=== PATIENT | male | born 1955 | race Caucasian/White ===

== ENCOUNTER → 2021-07-14 | Outpatient (CLI) | payer MEDICARE ==
[~2021-07-14] MED LIST: ASPI-886 PO; ATOR20TA58 PO; DOCU-109 PO; GABA600T7 PO; HYDR-2761 PO; INDO75CA3 PO; METF500T16 PO; TIZA4TAB2 PO
[2021-07-14 13:32] LABS: BASO # 0.1 x10^3/uL (0.0-0.2); BASO % 0 % (0-3); EOS # 0.1 x10^3/uL (0.0-0.7); EOS % 1 % (0-3); HEMATOCRIT 43.7 % (39.0-53.0); LYMPH # 1.5 x10^3/uL (1.0-4.8); LYMPH % 13 % (24-48); MEAN CORPUSCULAR HEMOGLOBIN 31 pg (25-35); MEAN CORPUSCULAR HGB CONC 34 g/dL (31-37); MEAN CORPUSCULAR VOLUME 90 fL (79-100); MONO # 0.7 x10^3/uL (0.0-1.1); MONO % 6 % (0-9); NEUT # 9.7 x10^3/uL (1.8-7.7); NEUT % 81 % (31-73); PLATELET COUNT 337 x10^3/uL (140-400); RED BLOOD COUNT 4.84 x10^6/uL (4.30-5.70); RED CELL DISTRIBUTION WIDTH 14.5 % (11.5-14.5)
[2021-07-14 13:46] LABS: ALBUMIN 3.6 g/dL (3.4-5.0); ALBUMIN/GLOBULIN RATIO 1.1 (1.0-1.7); CALCIUM 9.2 mg/dL (8.5-10.1); POTASSIUM 4.4 mmol/L (3.5-5.1); TOTAL BILIRUBIN 0.3 mg/dL (0.2-1.0); TOTAL PROTEIN 6.9 g/dL (6.4-8.2)
[2021-07-15 02:10] LABS: HEMOGLOBIN A1C 6.3 % (4.8-5.6)
== END ==
LOC: SURGPAT 12:49
PROVIDERS: ATTEND Neurological Surgery
DX: Z01.818 Encounter for other preprocedural examination (principal); M51.17 Intervertebral disc disorders with radiculopathy, lumbosacral region; Z79.899 Other long term (current) drug therapy
CPT/HCPCS: 36415; 80053; 83036; 85025; 87641

== ENCOUNTER 2021-07-18 10:48 | Day surgery (SDC) | payer MEDICARE ==
[2021-07-14 13:30] VITALS: BP 125/62
--- NOTE | 2021-07-17 16:56 | HP ---
ADMIT DATE: 07/18/2021 PREOPERATIVE HISTORY AND PHYSICAL HISTORY OF PRESENT ILLNESS: The patient is a pleasant 65-year-old man who is having difficulty with low back pain, left buttock pain and left posterior thigh pain. The pain radiates to his left leg to the bottom of his left foot and to the lateral side of his left foot. He said he has had similar problems in late 2019, but this April the problem became worse again. He says when it is severe the pain is 10/10. It is relatively constant. The pain is worse with activities. Sitting, standing and walking increases pain. Lying down helps. He is taking gabapentin and tizanidine without much benefit. Oral steroids have helped him. He has had 6 weeks of physical therapy with no benefit. He had an injection in his posterior thigh without benefit. He had an epidural steroid injection on June 23, which helped him for few days. He has been extensively evaluated with regard to his left hip. CURRENT MEDICATIONS: Indomethacin, aspirin, metformin, atorvastatin, tizanidine, gabapentin. PAST MEDICAL HISTORY: Denies any previous medical history. SURGICAL HISTORY: Cataract removal, left knee meniscus repair. FAMILY HISTORY: Cancer, diabetes, heart disease. SOCIAL HISTORY: Retired. . Quit smoking more than 10 years ago. Drinks alcohol 1-2 times per month. ALLERGIES: No known drug allergies. REVIEW OF SYSTEMS: A 12-point review of systems was performed and is noncontributory except that mentioned above. PHYSICAL EXAMINATION: GENERAL: Alert, pleasant, in no acute distress. HEENT: Head is normocephalic, atraumatic. SKIN: Warm and dry. BACK: Moderate tenderness of the lower lumbar spine with palpation. MUSCULOSKELETAL: Lumbar paraspinal muscle bulk is normal, the range of motion is normal, normal range of motion of the lower extremities. EXTREMITIES: No clubbing, cyanosis or edema. NEUROLOGIC: Alert and oriented x 3. Speech is clear. Strength is 5/5 in the lower extremities bilaterally. Sensory was intact to light touch in the lower extremities except for decrease in sensation on the plantar and lateral side of the left foot, reflexes were trace in the lower extremities except an absent ankle jerks on the left. Straight leg raising was positive for back and left leg pain relieved by Lasegue's maneuver. Straight leg raising was negative on the right. Antalgic gait. IMAGING: I reviewed the lumbar MRI scan. On that study, there is a focal disk herniation on the left at L5-S1, which is filling the lateral recess and compressing the left S1 nerve root. ASSESSMENT AND PLAN: The patient has a focal disk herniation at L5-S1 on the left with significant left lumbar radiculopathy. He has failed to improve with conservative measures and time. I recommended lumbar microsurgery at L5-S1 on the left. I spoke with him in detail about the surgery including the risks involved, including nerve root injury. I spoke with his about the possibility of infection and risk of anesthesia as well. I discussed the expected postoperative course. He understands. He would like to proceed. LINDSEY DR: Amanda TID: [id number]
[~2021-07-18] VITALS: Ht 165.1 cm; Wt 65.0 kg
[~2021-07-18 10:48] MED LIST changes: +BUPIVACAINE-EPI 0.5%-1:200000 MPF 30 ML VIAL. ONE; -DOCU-109 PO; +GELATIN SPONGE SIZE 100. ONE; -HYDR-2761 PO; +HYDROmorphone 2 MG/ML VIAL IVP PRN; +IV RINGERS,LACTATED 1000ML 1,000 ML IV SCH; +KETOROLAC 60 MG/2 ML VIAL. ONE; +MORPHINE SULFATE 2 MG/ML INJ. IVP PRN; +PROCHLORPERAZINE 10 MG/2 ML VIAL. IVP PRN; +THROMBIN TOPICAL 20,000 UNIT SPRAY.SYRN KIT TP ONE; +ceFAZolin SODIUM 1 GM in IV NORMAL SALINE 1000ML BAG 1,000 ML IRR ONE; +fentaNYL PF VIAL 100 MCG/2 ML VIAL IVP PRN
[2021-07-18 11:23] VITALS: BP 152/76
[2021-07-18] MEDS ORDERED: PROPOFOL 50 ML IV ONE ×2 (12:07→12:13)
[2021-07-18] MEDS ORDERED: LIDOCAINE 2% PF 5 ML VIAL. ONE (12:07)
[2021-07-18] MEDS ORDERED: ONDANSETRON PF 4 MG/2 ML VIAL. ONE ×3 (12:07→14:53)
[2021-07-18] MEDS ORDERED: DEXAMETHASONE SOD PHOS 4 MG/ML VIAL ONE (12:07)
[2021-07-18] MEDS ORDERED: PROPOFOL 10 MG/ML (20ML) VIAL. IV ONE (12:07)
[2021-07-18] MEDS ORDERED: ROCURONIUM 50 MG/5 ML VIAL. ONE (12:08)
[2021-07-18] MEDS ORDERED: MIDAZOLAM HCL/PF 2 MG/2 ML VIAL. ONE (12:08)
[2021-07-18] MEDS ORDERED: REMIFENTANIL 2 MG VIAL. IV ONE (12:08)
[2021-07-18] MEDS ORDERED: fentaNYL PF VIAL 100 MCG/2 ML VIAL ONE (12:08)
[2021-07-18] MEDS ORDERED: KETAMINE HCL IN NACL, ISO-OSM 50 MG/5 ML SYRINGE ONE (12:17)
[2021-07-18] MEDS ORDERED: PHENYLEPHRINE 10 MG/ML VIAL. ONE (12:18)
[2021-07-18] MEDS ORDERED: NEOSTIGMINE METHYLSULFATE 5 MG/5 ML SYRINGE. ONE (13:42)
[2021-07-18] MEDS ORDERED: DESFLURANE > 120 MINUTES IH ONE (14:50)
[2021-07-18] MEDS ORDERED: DOCU-109 PO (15:13)
[2021-07-18] MEDS ORDERED: HYDR-2761 PO (15:13)
--- NOTE | 2021-07-18 15:17 | DISCH ---
DISCHARGE INSTRUCTIONS Condition on Discharge Condition on Discharge: Stable Activity After Discharge Activity Instructions for Disc: Activity as tolerated, Avoid exertion Other activity instructions: mo driving for a week Bathing Instructions: Shower-keep dressing dry, No Tub Bath until see Lifting Instructions after Dis: No heavy lifting, No pulling or pushing, Do not lift >10 pounds Diet after Discharge Additional Diet Restrictions: resume home diet Wound Incision Care Wound/Incision Care: Ice to area for comfort Other wound/incision instructi: may remove dressing in 48 hours if dry, no soaking Contacting the after DC Call your doctor for: Concerns you may have Follow-Up Follow up with: Dr. Grimm's nurse in 2 weeks [phone] MARIA DEL CARMEN GRIMM MD Jul 18, 2021 15:17
[2021-07-18] MEDS ORDERED: HYDROcodone/APAP 5/325MG 1 TAB TABLET PO ONE (15:30)
[2021-07-18 16:30] VITALS: BP 146/76
--- NOTE | 2021-07-18 18:37 | OP ---
DATE OF SURGERY: 07/18/2021 PREOPERATIVE DIAGNOSIS: Herniated lumbar disc, L5-S1, left with left lumbar radiculopathy. POSTOPERATIVE DIAGNOSIS: Herniated lumbar c L5-S1, left with left lumbar radiculopathy. OPERATION PERFORMED: Hemilaminotomy and microdiscectomy at L5-S1. The operation was done with EMG monitoring, SSEP monitoring, fluoroscopy and microscopic dissection. SPECIMEN: disc and decompression. SURGEON: Lalito Sanchez M.D. HARDENING MACHINE OPERATOR HELPER: HEBERT De La Rosa, assisted with the surgery. She assisted with the exposure, the microdiscectomy as well as the closure. OPERATIVE INDICATIONS: The patient is a very pleasant 65-year-old man who developed intractable back and left leg pain. He had 6 weeks of physical therapy, which did not help him significantly. He had an epidural steroid injection recently, which helped for a few days because of pain recurred and has persisted and moderately severe. I recommended lumbar microsurgery. I spoke with him about the surgery, the risks, the technique and expected postoperative course, and he wished to go ahead. DESCRIPTION OF PROCEDURE: Following general endotracheal anesthesia, the patient was positioned prone on the Diaz table. Lumbar region prepped and draped in the standard fashion. CHIDI hose and AV impulse boots were applied for DVT prophylaxis. A microscope was draped, fluoroscopy was draped and brought into the field. Monitoring was established. Ancef 2 grams was given less than one hour prior to initiation of surgery. Using fluoroscopic guidance, incision was made directly over the L5-S1 interspace and dissected down through skin and subcutaneous tissue, reflected the paraspinal muscles, brought in the [place] Microdisk retractor, brought in the microscope and using high speed air drill, I burred down a generous hemilaminotomy. I trimmed the ligamentum flavum and followed the S1 nerve root out laterally. The root was lifted and draped over structures beneath. Then, I gently retracted the root and dura medially with a micro nerve root retractor. There were multiple disc fragments in the epidural space, which I teased back and removed. I then freed the nerve significantly. I was able to retract the nerve slightly further. Then, I grasped and pulled back a very large herniated disc fragment, followed by 2 moderately sized disc fragments. I explored carefully. There was a fragment of disc that had gone out into the foramen and I teased this back and removed it. The disc space was largely collapsed. I irrigated copiously with antibiotic solution. I had excellent hemostasis. Monitoring was outstanding throughout the operation. There was a single small discharge on the monitor when essentially nothing was being done, but otherwise was quiet. I did use small amounts of bone wax as well as bipolar cautery and removed the retractor, obtained hemostasis in the muscle, irrigated again and then closed the wound in layers with absorbable sutures. The skin was closed with 4-0 subcuticular stitch. The surgery went very well. RAFI/LEONARDO DR: Argelia TID: [id number] ANGELA
== END 2021-07-18 16:51 | disposition home or self-care (01) ==
LOC: SURG 10:48 → EDUNIT# 12:30 → SURG 16:51
PROVIDERS: ATTEND Neurological Surgery
DX: M51.17 Intervertebral disc disorders with radiculopathy, lumbosacral region (principal); E78.00 Pure hypercholesterolemia, unspecified; E11.9 Type 2 diabetes mellitus without complications; M19.90 Unspecified osteoarthritis, unspecified site; Z79.82 Long term (current) use of aspirin; Z79.84 Long term (current) use of oral hypoglycemic drugs; Z79.899 Other long term (current) drug therapy; Z98.890 Other specified postprocedural states; Z87.891 Personal history of nicotine dependence
CPT/HCPCS: 63030; 82962; 97161; A4213; A4364; A4556; A4930; A6254; A6258; J0690; J1100; J1885; J2250; J2370; J2405; J2704; J2710; J3010; J7030; 76000; 88304; 88311; A4222